=== PATIENT | male | born 1990 | race Caucasian/White ===

== ENCOUNTER 2018-02-15 18:48 | Emergency (ER) | payer SELFPAY ==
[~2018-02-15 18:48] MED LIST: CEPH500C3 PO; SULF1TAB47 PO; TRAM50 PO
== END 2018-02-15 21:20 | disposition left against medical advice (07) ==
LOC: NED 18:48
DX: Z03.89 Encounter for observation for other suspected diseases and conditions ruled out (principal)
CPT/HCPCS: 99281